=== PATIENT | female | born 1955 | race Caucasian/White ===

== ENCOUNTER 2018-05-11 15:02 | Observation (INO) | payer OTHER ==
[2018-05-11 15:14] VITALS: BMI 38.7
--- NOTE | 2018-05-11 15:17 | PDOC ---
History of Present Illness - General Chief Complaint: Chest Pain Stated Complaint: CHEST PAIN Time Seen by Provider: 05/11/18 15:17 - History of Present Illness Initial Comments: 05/11/18 16:16 The patient is a 63 year old female with a history of HTN, HLD, DM, COPD, Thyroid disfunction who presents for evaluation of chest pain. The patient reports that she was in wound clinic for lower extremity wounds and upon leaving the office, she began to have chest pressure with left arm tingling and shortness of breath. The patient notes that her symptoms have resolved on presentation to the ED. She otherwise denies fevers, chills, nausea, vomiting, abdominal pain, or changes with urination or bowel movements. Past History - Past Medical History Allergies/Adverse Reactions: Allergies Allergy/AdvReac Type Severity Reaction Status Date / Time Iodinated Contrast- Oral and Allergy Severe Verified 04/20/18 16:08 IV Dye iodine Allergy Severe Verified 04/20/18 16:08 Iodine and Iodide Containing Allergy Severe Verified 04/20/18 16:08 Produc shrimp Allergy Verified 04/20/18 16:08 vancomycin Allergy Verified 04/20/18 16:08 Home Medications: Ambulatory Orders Apixaban [Eliquis] 1 tab PO BID 04/20/18 Cholecalciferol (Vitamin D3) [Vitamin D3] 1 tab PO DAILY 04/20/18 Digoxin 125 mcg PO DAILY 04/20/18 Doxycycline Hyclate [Vibramycin -] 500 mg PO DAILY 04/20/18 Duloxetine HCl [Cymbalta] 1 tab PO BID 04/20/18 Ezetimibe [Zetia -] 1 tab PO HS 04/20/18 Furosemide [Lasix] 1 tab PO DAILY 04/20/18 Levothyroxine [Synthroid -] 1 tab PO DAILY 04/20/18 Melatonin 1 tab PO HS 04/20/18 Metoprolol Tartrate 12.5 mg PO BID 04/20/18 Oxymorphone HCl [Opana] 1 tab PO QID 04/20/18 Potassium Chloride [Klor-Con M20] 1 tab PO DAILY 04/20/18 Pregabalin [Lyrica -] 1 cap PO QID 04/20/18 Tiotropium Br/Olodaterol HCl [Stiolto Respimat Inhal [place]] 2 puff IH DAILY 02/27 Vitamin A 1 tab PO DAILY 04/20/18 clonazePAM [Klonopin -] 1 tab PO TID 04/20/18 Collagenase Clostridium Hist. [Santyl] 1 applic TP DAILY #90 oint...g. 05/11/18 COPD: Yes (O2 AT NIGHT) Diabetes: Yes HTN: Yes Thyroid Disease: Yes - Surgical History Orthopedic Surgery: Yes (left thigh fx with surgery) - Immunization History Immunization Up to Date: Yes - Suicide/Smoking/Psychosocial Hx Smoking History: Never smoked Have you smoked in the past 12 months: Yes Number of Cigarettes Smoked Daily: 40 Information on smoking cessation initiated: No Hx Alcohol Use: No Drug/Substance Use Hx: No Substance Use Type: None Review of Systems - Review of Systems Comments:: 05/11/18 16:18 Constitutional: No fevers, chills, fatigue, malaise HEENT: No Rhinorrhea, nasal congestion, visual changes Cardiovascular: Chest pressure. No syncope, palpitations, lightheadedness Respiratory: SOB. No Cough, Hemoptysis, Gastrointestinal: No Abdominal pain, Nausea, Vomiting, Constipation, Diarrhea, Melena Genitourinary: No Dysuria, Frequency, Urgency, Hesitancy, Hematuria, Flank pain Musculoskeletal: No Myalgia, arthralgia Skin: No rashes, itching, bruising, pallor Neurologic: Tingling. No Headache, Dizziness, Numbness, Weakness, Psychiatric: No Hallucinations. No SI or HI *Physical Exam - Vital Signs Last Vital Signs Temp Pulse Resp BP Pulse Ox 98.2 F 104 H 22 H 107/71 93 L 05/11/18 15:11 05/11/18 15:11 05/11/18 15:11 05/11/18 15:11 05/11/18 15:11 - Physical Exam Comments: 05/11/18 16:18 General Appearance: Nourished. No Apparent Distress HEENT: No Pharyngeal Erythema, Tonsillar Exudate, Tonsillar Erythema Neck: No Cervical Lymphadenopathy Respiratory/Chest: Wheezing noted on exam. No Crackles, Rales, Rhonchi, Cardiovascular: Regular Rhythm, Regular Rate. No Murmur, Gallops, Rubs Gastrointestinal/Abdominal: Normal Bowel Sounds, Soft. No Guarding, Rebound, Tenderness Musculoskeletal: No CVA Tenderness Extremity: Normal Capillary Refill Integumentary: Normal Color, Dry, Warm Neurologic: Fully Oriented, Alert, Normal Mood/Affect, Normal Response, Moderate Sedation - Procedure Monitoring Vital Signs: Procedure Monitoring Vital Signs Temperature 98.2 F 05/11/18 15:11 Pulse Rate 104 H 05/11/18 15:11 Respiratory Rate 22 H 05/11/18 15:11 Blood Pressure 107/71 05/11/18 15:11 O2 Sat by Pulse Oximetry (%) 93 L 05/11/18 15:11 Heart Score/ECG Review - History History: Moderately suspicious - Electrocardiogram EKG: Non specific repolarization disturbance - Age Age: >/= 65 - Risk Factors Risk Factors Heart Score: Yes Hx Hypercholesterolemia, Yes Hx Hypertension, Yes Hx Diabetes, Yes Smoking History Based on the list above the patient has:: >/=3 risk factors or Hx atherosclerotic disease - Troponin Troponin: </= normal limit - Score Heart Score - Total: 6 #1 ECG reviewed & interpreted by me at: 16:22 General ECG Interpretation: Sinus Rhythm, Normal Rate 05/11/18 16:31 Incomplete right bundle branch block New t wave inversions in leads V4-V6 ED Treatment Course - LABORATORY CBC & Chemistry Diagram: 05/12/18 10:00 05/12/18 10:00 Medical Decision Making - Medical Decision Making 05/11/18 16:19 The patient is a 63 year old female with a history of HTN, HLD, DM, COPD, Thyroid disfunction who presents for evaluation of chest pain. Differential includes but is not limited to: ACS, Arrhythmia, COPD, Infections, Metabolic Derangement. Given the patient's history and physical exam, we will obtain a cbc, cmp, troponin, bnp, chest plain film, ekg to evaluate further. We will treat with aspirin and continue to monitor and reassess while here in the ED. 05/11/18 17:18 CBC, cmp, troponin, are unremarkable. BNP was elevated to 6000s. Chest plain film is unremarkable. The patient's symptoms are likely due to a COPD exacerbation. The patient was signed out to the night team pending a CTA to r/ o PE. 05/13/18 10:19 *DC/Admit/Observation/Transfer Diagnosis at time of Disposition: COPD exacerbation COPD (chronic obstructive pulmonary disease) Qualifiers: COPD type: unspecified COPD Qualified Code(s): J44.9 - Chronic obstructive pulmonary disease, unspecified - Discharge Dispostion Condition at time of disposition: Improved - Referrals - Patient Instructions - Post Discharge Activity
[2018-05-11] MEDS ORDERED: ASPIRIN 81 MG CHEWABLE TABLETS PO ONE (15:46)
[2018-05-11] MEDS ORDERED: ASPIRIN 81 MG CHEWABLE TABLETS ONE (16:04)
[2018-05-11 16:23] LABS: ALBUMIN 2.8 g/dl (3.4-5.0); ALK PHOS 138 U/L (45-117); ANION GAP 6 MMOL/L (8-16); BILIRUBIN,TOTAL 0.8 mg/dL (0.2-1); BLOOD UREA NITROGEN 16 mg/dL (7-18); CALCIUM 8.6 mg/dL (8.5-10.1); CHLORIDE 104 mmol/L (98-107); CO2 28 mmol/L (21-32); CREATININE 0.9 mg/dL (0.55-1.3); GLUCOSE,RANDOM 87 mg/dL (74-106); N-TERMINAL BNP 6779.4 pg/ml (5-125); POTASSIUM 5.2 mmol/L (3.5-5.1); SGOT/AST 23 U/L (15-37); SGPT/ALT 12 U/L (13-61); SODIUM 137 mmol/L (136-145); TOT PROT 7.4 g/dl (6.4-8.2)
[2018-05-11 16:30] LABS: BASO % 1.1 % (0-2.0); EOS % 1.2 % (0-4.5); HEMATOCRIT 40.3 % (32.4-45.2); HEMOGLOBIN 12.6 GM/dL (10.7-15.3); LYMPH % 12.9 % (8-40); MCH 23.5 pg (25.7-33.7); MCHC 31.3 g/dl (32.0-36.0); MEAN CELL VOLUME 75.1 fl (80-96); MEAN PLT VOLUME 9.6 fl (7.5-11.1); NEUT % 76.8 % (42.8-82.8); PLATELET COUNT 212 K/MM3 (134-434); RBC 5.37 M/mm3 (3.60-5.2); RDW 20.9 % (11.6-15.6); WHITE BLOOD COUNT 11.8 K/mm3 (4.0-10.0)
[2018-05-11] MEDS ORDERED: ALBUTEROL SO4 2.5/IPRATROPIUM 0.5 INH SOL 3 ML VIAL.NEB. NEB ONE ×3 (17:05→17:15)
--- NOTE | 2018-05-11 17:06 | PDOC ---
Attending Attestation - Resident Resident Name: Jamil Knight - ED Attending Attestation I have performed the following: I have examined & evaluated the patient, The case was reviewed & discussed with the resident, I agree w/resident's findings & plan, Exceptions are as noted - HPI HPI: 05/11/18 17:03 63 yo F with h/o chonic venous stasis ulcers on wound vac, copd, pulm htn, htn hld here from wound clinic ( dr. scott) where she was having her right leg evaluation, suddenly had pressure like chest pain radiating to her left arm and tingling. has since resolved. lasted few minutes. no cough. no h/o pe or dvt. did have associated sob. pt does note where home oxygen, only at night. see bobbin trucker dr Hurst [phone] - Physicial Exam PE: 05/11/18 17:05 awake alert lungs with decreased air flow bilaterally . exp wheezing faint, normal effort. heart irreg tachycardia. ext wwp. diffuse bilat pitting edema. mild erythema to right leg. wound vac in place. nuero alert oriented x 3. - Medical Decision Making 05/11/18 17:06 differential angina, secondary to lung process such as hypoxia from pna effusion or copd. pe considered as pt with decreased mobility from leg wounds. plan labs cxr likley ct a aspirin. will admit to tele. in addition will treat copd with nebs. steroids. Heart Score/ECG Review #1 General ECG Interpretation: Sinus Rhythm, Normal Rate, Normal Intervals Compared to previous ECG there are: Other (st depressions II, II AVF, V5 - V6. change from old ekg 2002.)
--- NOTE | 2018-05-11 20:03 | PDOC ---
*Physical Exam - Vital Signs Last Vital Signs Temp Pulse Resp BP Pulse Ox 98.2 F 104 H 22 H 107/71 3 L 05/11/18 15:11 05/11/18 15:11 05/11/18 15:11 05/11/18 15:11 05/11/18 16:45 ED Treatment Course - LABORATORY CBC & Chemistry Diagram: 05/12/18 10:00 05/12/18 10:00 - ADDITIONAL ORDERS Additional order review: Laboratory Results 05/11/18 15:40 Sodium 137 Potassium 5.2 H Chloride 104 Carbon Dioxide 28 Anion Gap 6 L BUN 16 Creatinine 0.9 Creat Clearance w eGFR > 60 Random Glucose 87 Calcium 8.6 Total Bilirubin 0.8 AST 23 ALT 12 L Alkaline Phosphatase 138 H Creatine Kinase 81 Troponin I < 0.02 B-Natriuretic Peptide 6779.4 H Total Protein 7.4 Albumin 2.8 L 05/11/18 15:40 RBC 5.37 H MCV 75.1 L MCHC 31.3 L RDW 20.9 H MPV 9.6 Neutrophils % 76.8 Lymphocytes % 12.9 Monocytes % 8.0 Eosinophils % 1.2 Basophils % 1.1 - Medications Given in the ED: ED Medications Discontinued Medications Generic Name Dose Route Start Last Admin Trade Name Freq PRN Reason Stop Dose Admin Albuterol/Ipratropium 2 amp 05/11/18 17:05 05/11/18 17:15 Duoneb - NEB 05/11/18 17:06 2 amp ONCE ONE Administration Aspirin 324 mg 05/11/18 15:46 05/11/18 16:06 Asa - PO 05/11/18 15:47 324 mg ONCE ONE Administration Medical Decision Making - Medical Decision Making Pt was signed out to me by resident Dr. Knight, who explained the presentation , ED course, any pending results, and needed interventions. Pending results include CTA to r/o PE and admission. Pt is currently stable and is lying comfortably, but has been saturating 88-90% on 5 L NC. Pt apparently is supposed to use home O2 and has continued smoking multiple packs of cigarettes per day with no home O2 use during the day. 05/11/18 19:06 Pt has anaphylactic reaction to IV contrast. No immediate access to VQ scan at [facility]. Calling [facility] ER/Pulmonology to see if they will accept transfer for further evaluation/VQ scan to r/o PE. 05/11/18 20:18 Spoke with [facility]; they do not have access to VQ scan at night or on the weekends , so transfer would still put us at delay for VQ scan. Give pt on anti- coagulation for A-fib, unlikely PE at this time, and SOB likely due to COPD exacerbation. Pt sitting-up, continues to saturate around baseline (88-90%) on 5L NC. Hospitalist team paged for admission/further recommendations. 05/11/18 21:07 Spoke with hospitalist team who has accepted pt for admission. 05/11/18 23:01 Providing pt home dose of Cymbalta for anxiety. Hospitalist team paged to put in admission orders. 05/12/18 00:36 (entered later) Hospitalist team admitted pt for telemetry observation. Pt was provided Cymbalta and Klonopin for anxiety attack. When I left the department, pt was lying comfortably and was saturating at her baseline ~90% O2 on 5 L NC. 05/12/18 18:08 *DC/Admit/Observation/Transfer Diagnosis at time of Disposition: COPD exacerbation COPD (chronic obstructive pulmonary disease) Qualifiers: COPD type: unspecified COPD Qualified Code(s): J44.9 - Chronic obstructive pulmonary disease, unspecified - Discharge Dispostion Condition at time of disposition: Improved Decision to Admit order: Yes - Referrals - Patient Instructions - Post Discharge Activity
[2018-05-12] MEDS ORDERED: DULoxetine HCL 60 MG CAPSULE.DR PO ONE (00:01)
[2018-05-12] MEDS ORDERED: clonazePAM 0.5 MG TABLET PO ONE (01:07)
[2018-05-12] MEDS ORDERED: DULoxetine HCL 30 MG CAPSULE.DR (FP) PO ONE (01:07)
[2018-05-12] MEDS ORDERED: clonazePAM 0.5 MG TABLET PO PRN (01:23)
--- NOTE | 2018-05-12 01:30 | HP ---
CHIEF COMPLAINT: Chest pain and SOB PCP: HISTORY OF PRESENT ILLNESS: Pt is a 63 y/o lady 2PPD smoker on 3L home O2 every night with a significant past medical history of HTN, HLD, DM (most recent A1C 5.5%), COPD, Atrial Flutter on Eliquis, 6 herniated discs, congenital renal malformation was in wound care on and suddenly became short of breath and decompensated. Pt endorses she was sitting in her chair when she ascencio to feel sob and experience chest pain. Pain is described as being located in the middle of her chest. This is the first time she has had this before. Furthermore, endorses a tingling sensation inside her arms during the episode. Pain is described as achy in nature. Was hospitalized on Apr 16 of this year for SVT? Ultimately was placed on Metoprolol an outpatient. ER course was notable for: (1) Desat low 70's- 80'S (2) 6779 bnp (3) Recent Travel: PAST MEDICAL HISTORY: per hpi PAST SURGICAL HISTORY: B/L breast reduction, Skin graft left leg, gastric bypass , Social History: Smokin packs a day cigarettes Alcohol: denies Drugs: denies Family History: Allergies Iodinated Contrast- Oral and IV Dye Allergy (Severe, Verified 04/20/18 16:08) iodine Allergy (Severe, Verified 04/20/18 16:08) Iodine and Iodide Containing Produc Allergy (Severe, Verified 04/20/18 16:08) shrimp Allergy (Verified 04/20/18 16:08) vancomycin Allergy (Verified 04/20/18 16:08) HOME MEDICATIONS: Home Medications Medication Instructions Recorded Apixaban [Eliquis] 1 tab PO BID 04/20/18 Cholecalciferol (Vitamin D3) 1 tab PO DAILY 04/20/18 [Vitamin D3] Digoxin 125 mcg PO DAILY 04/20/18 Doxycycline Hyclate [Vibramycin -] 500 mg PO DAILY 04/20/18 Duloxetine HCl [Cymbalta] 1 tab PO BID 04/20/18 Ezetimibe [Zetia -] 1 tab PO HS 04/20/18 Furosemide [Lasix] 1 tab PO DAILY 04/20/18 Levothyroxine [Synthroid -] 1 tab PO DAILY 04/20/18 Melatonin 1 tab PO HS 04/20/18 Metoprolol Tartrate 12.5 mg PO BID 04/20/18 Oxymorphone HCl [Opana] 1 tab PO QID 04/20/18 Potassium Chloride [Klor-Con M20] 1 tab PO DAILY 04/20/18 Pregabalin [Lyrica -] 1 cap PO QID 04/20/18 Tiotropium Br/Olodaterol HCl 2 puff IH DAILY 04/20/18 [Stiolto Respimat Inhal [place]] Vitamin A 1 tab PO DAILY 04/20/18 clonazePAM [Klonopin -] 1 tab PO TID 04/20/18 Collagenase Clostridium Hist. 1 applic TP DAILY #90 oint...g. 05/11/18 [Santyl] REVIEW OF SYSTEMS CONSTITUTIONAL: Absent: fever, chills, diaphoresis, generalized weakness, malaise, loss of appetite, weight change HEENT: Absent: rhinorrhea, nasal congestion, throat pain, throat swelling, difficulty swallowing, mouth swelling, ear pain, eye pain, visual changes CARDIOVASCULAR: PRESENT: chest pain RESPIRATORY: PRESENT: shortness of breath, wheezing GASTROINTESTINAL: Absent: abdominal pain, abdominal distension, nausea, vomiting, diarrhea, constipation, melena, hematochezia GENITOURINARY: Absent: dysuria, frequency, urgency, hesitancy, hematuria, flank pain, genital pain MUSCULOSKELETAL: Absent: myalgia, arthralgia, joint swelling, back pain, neck pain SKIN: Absent: rash, itching, pallor HEMATOLOGIC/IMMUNOLOGIC: Absent: easy bleeding, easy bruising, lymphadenopathy, frequent infections ENDOCRINE: Absent: unexplained weight gain, unexplained weight loss, heat intolerance, cold intolerance NEUROLOGIC: Absent: headache, focal weakness or paresthesias, dizziness, unsteady gait, seizure, mental status changes, bladder or bowel incontinence PSYCHIATRIC: PRESENT: anxiety PHYSICAL EXAMINATION Vital Signs - 24 hr 05/11/18 05/11/18 15:11 16:45 Temperature 98.2 F Pulse Rate 104 H Respiratory 22 H Rate Blood Pressure 107/71 O2 Sat by Pulse 93 L 3 L Oximetry (%) GENERAL: Awake, alert, Oriented HEAD: Normal with no signs of trauma. EYES: EOMI EARS, NOSE, THROAT: MMM NECK: No jvd appreciated LUNGS: Decresed BS throughout HEART: RRR ABDOMEN: SOFt NDNT BS+ MUSCULOSKELETAL: Normal range of motion at all joints. No bony deformities or tenderness. No CVA tenderness. UPPER EXTREMITIES: 2+ pulses, warm, well-perfused. No cyanosis. No clubbing. No peripheral edema. LOWER EXTREMITIES: RLE wond vac in place. stasis dermatitis b/l .Onychomycosis NEUROLOGICAL: Cranial nerves II-XII intact. Normal speech. Normal gait. PSYCHIATRIC: Cooperative. Good eye contact. Appropriate mood and affect. SKIN: no rashes or lesions appreciated Laboratory Results - last 24 hr 05/11/18 05/11/18 15:40 15:40 WBC 11.8 H RBC 5.37 H Hgb 12.6 Hct 40.3 MCV 75.1 L MCH 23.5 L MCHC 31.3 L RDW 20.9 H Plt Count 212 MPV 9.6 Absolute Neuts (auto) 9.1 H Neutrophils % 76.8 Lymphocytes % 12.9 Monocytes % 8.0 Eosinophils % 1.2 Basophils % 1.1 Nucleated RBC % 0 Sodium 137 Potassium 5.2 H Chloride 104 Carbon Dioxide 28 Anion Gap 6 L BUN 16 Creatinine 0.9 Creat Clearance w eGFR > 60 Random Glucose 87 Calcium 8.6 Total Bilirubin 0.8 AST 23 ALT 12 L Alkaline Phosphatase 138 H Creatine Kinase 81 Troponin I < 0.02 B-Natriuretic Peptide 6779.4 H Total Protein 7.4 Albumin 2.8 L ASSESSMENT/PLAN: Pt is a 63 y/o lady with a significant past medical history of HTN, HLD, DM ( most recent A1C 5.5%), COPD, Atrial Flutter on Eliquis, 6 herniated discs, congenital renal malformation was in wound care on and suddenly became short of breath and decompensated. #Chest pain with SOB -Want to r/o P.E in setting of abrupt tachycardia, chest pain, and shortness of breath - Cannot receive CT Contrast in light of allergy - V/Q scan not performed on weekends - Pt already on Eliquis 5 bid. -Tele -trend troponin -check an echo -Well's Score 0 #HTN -Resume Home meds # HLD Resume home meds Atrial Flutter Resume Metoprolol and Eliquis COPD exacerbation? Prednisone 60 daily x 5 days # Congenital renal malformation -Follow renal levels. FEN No Fluids Mon Electrolytes Sodium controled diet DVT ppx: Eliquis 5 bid diso: Tele obs Visit type - Emergency Visit Emergency Visit: Yes ED Registration Date: 05/11/18 Care time: The patient presented to the Emergency Department on the above date and was hospitalized for further evaluation of their emergent condition. - New Patient This patient is new to me today: Yes Date on this admission: 05/12/18 - Critical Care Critical Care patient: No
--- NOTE | 2018-05-12 01:42 | PN ---
Teaching Attending Note Name of Resident: Sarkis Garrett ATTENDING PHYSICIAN STATEMENT I saw and evaluated the patient. I reviewed the resident's note and discussed the case with the resident. I agree with the resident's findings and plan as documented. SUBJECTIVE: Seen and examined; she was having a panic attack when I assessed her so couldn' t provide a complete history; please see other documentation for further details. She is a 63 y/o 2PPD smoker on 3L home O2 every night and sometimes during the day (has been requiring it but not using it despite her home care nurse telling her that she should). She also has a complicated history of DM, osteoporosis, LE wounds on wound vac being followed by Dr. Lainez, atrial fib on eliquis, congenital renal malformation. She had a rapid response today at wound care. She is hemodynamially stable and afebrile. She is compliant with her home medications. Was in wound care today when she experienced sudden onset SOB with chest pain radiating to her throat. Never had this before. [facility]es [facility] with recent admission in [place] earlier in this month (this is the hospital she tends to go to). She is found to have a BNP of 6779 and a WBC count of 11.8. Has had sleep study done but doesn't use CPAP. She is saturating well now on baseline O2. She does have some wheezes but as stated smokes 40 cigarettes per day. She denies having a panic attack when she had the CP and tells me that she is chest pain free when I saw her in the ER. There was aparently concern for PE and attempt was made to transfer to [facility]. Patient has a Well's score of 0 (must take into account she didn't take her PM meds for her aflutter which she was recently admitted with and her panic which easily brought her HR only slightly over 100 and only initially). 10 sys ROS done and negative aside from HPI PMH and PSH reviewed FH asked and noncontributory Social history positive for nearly lifetime smoker; 2PPD. Severe anxiety. is HCP and provides support. Medications reviewed OBJECTIVE: VS labs and imaging reviewed NAD, AAO, resting in bed. Tearful and anxious. Preoccupied with this. Legs with [place] attached and rubar of the R>L which both are swollen with dependent edema. Palpable pulses Good air movement but wheezes scattered bilaterally; on baseline O2. RRR s1/2 no mgr Abdomen is obese, NT, ND, +BS CN2-12 wnl, no fnd Tearful mood with very anxious affect and thought content involving her anxiety limiting insight to current situation Labs show BNP 6779, troponin negative, hypoalbuminemia to 2.8. Alk phos 138, WBC only mildly elevated at 11.8 CXR with cardiomegaly; no moshe pneumonia EKG reviewed ASSESSMENT AND PLAN: Mrs Betancourt is a 63 y/o CF who had a rapid response in wound clinic today brought to the ER for chest pain associated with SOB. 1) Chest pain with SOB -She is on her baseline O2 saturation now but has been sporadically using O2 on and off at home due to her wound vac causing difficulties with this; she will use O2 some days during the day, every day at night and her home health aide is encouraging her to use the O2 more frequently but she is refusing and continues to smoke. Once the anxiety was resolved she was resting comfortably on her nighttime requirements saturating above 92%. -She is on eliquis which argues against PE, argues against ACS. She does however have risks for CAD. We will trend troponin, check an echo. monitor on tele. Consider CV consult/further testing. She also is anxious but denies this plays a role. -BNP is elevated in the 6k range without any prior values. Followup on echo. She is on home lasix so assuming some amount of heart failure. Obtaining old records from her various facilities is paramount; will give a dose of IV lasix and monitor for response. Given her BMI of nearly 40 and complicating issues it is difficult to say for sure what her fluid status is. Strict Is and Os, QD weights, and sodium restricted diet. -In terms of the concern for PE, I do not see a reason to transfer the patient. We can check a d-dimer but given her wounds it would be positive no matter what, likely. Her wells score is low and anything that can be construed as positive is explainable by a known explanation. She is anaphylactic to dye. If concern persists for PE despite this would need a VQ -She does have reasons to have a COPD exacerbation; the trigger would likely be continued smoking with noncompliance with O2. Counseled regardign importance. Treating empirically for COPD exacerbation with 60 prednisone QD, ATC duonebs for at least a day with PRN albuterol, O2. Co -No evidence of PNA, slight WBC count likely reactive. -Can check a flu swab for completeness. Also would give incentive spirometry 2) Elevated BNP -Discussed above 3) H/O COPD with suspect exacerbation, current 40 cigarrete/day smoker, on home O2 -Discussed above 4) LE Wounds -Consult wound care for continued management when inpatient. 5) Hypoalbuminemia -Check prealbumin 6) Congenital Renal malformation -Tells us she has 3 kidneys; renal function normal; observe and OP followup 7) Morbid Obesity -S/P gastric sleeve; continue dietary modification and followup as needed 8) Tobacco abuse -[employer] to quit 9) Anxiety -Continue home medications
[2018-05-12] MEDS: METOPROLOL TARTRATE 25 MG TABLET (FP) PO SCH ×2 (01:51→09:17)
[2018-05-12] MEDS ORDERED: APIXABAN 5 MG TABLET PO ONE (02:43)
[2018-05-12] MEDS: APIXABAN 5 MG TABLET PO SCH ×2 (02:53→09:15)
[2018-05-12] MEDS ORDERED: ALBUTEROL SO4 0.083% IH SOL 2.5 MG/3 ML VIAL.NEB. NEB PRN (04:52)
[2018-05-12] MEDS ORDERED: FUROSEMIDE 40 MG/4 ML INJECTABLE VIAL IVPUSH ONE (04:53)
[2018-05-12] MEDS ORDERED: LEVOTHYROXINE NA 25 MCG TABLET (FP) ONE (06:50)
[2018-05-12] MEDS ORDERED: FUROSEMIDE 40 MG/4 ML INJECTABLE VIAL ONE (06:50)
[2018-05-12] MEDS ORDERED: LEVOTHYROXINE NA 50 MCG TABLET (FP) PO SCH (07:00)
[2018-05-12] MEDS: ALBUTEROL SO4 2.5/IPRATROPIUM 0.5 INH SOL 3 ML VIAL.NEB. NEB SCH ×2 (08:51→12:06)
[2018-05-12 09:09] VITALS: TEMP 97.2
[2018-05-12] MEDS ORDERED: PREGABALIN 50 MG CAPSULE ONE (09:26)
[2018-05-12] MEDS ORDERED: PREGABALIN 100 MG CAPSULE ONE (09:27)
[2018-05-12] MEDS ORDERED: VITAMIN A 10,000 UNITS CAPSULE PO SCH (10:00)
[2018-05-12] MEDS ORDERED: FUROSEMIDE 40 MG TABLET (FP) PO SCH (10:00)
[2018-05-12] MEDS ORDERED: DIGOXIN 0.125 MG TABLET (FP) PO SCH (10:00)
[2018-05-12] MEDS ORDERED: COLLAGENASE CLOSTRIDIUM HIST. 30 GRAMS TUBE TP SCH (10:00)
[2018-05-12] MEDS ORDERED: DULoxetine HCL 30 MG CAPSULE.DR (FP) PO SCH (10:00)
[2018-05-12] MEDS ORDERED: PATIENT'S OWN MEDICATION (NON-FORMULARY) (Tiotropium Br/Olodaterol Hcl [Stiolto Respimat I IH SCH (10:00)
[2018-05-12] MEDS ORDERED: PREGABALIN 75 MG CAPSULE PO SCH (10:00)
[2018-05-12] MEDS ORDERED: DOXYCYCLINE HYCLATE 100 MG CAPSULE PO SCH (10:00)
[2018-05-12] MEDS ORDERED: predniSONE 20 MG TABLET (UD) PO SCH (10:00)
[2018-05-12] MEDS ORDERED: CHOLECALCIFEROL (VITAMIN D3) 1,000 UNIT TABLET (FP) PO SCH (10:00)
[2018-05-12 10:27] LABS: BASO % 0.9 % (0-2.0); EOS % 1.9 % (0-4.5); HEMATOCRIT 43.6 % (32.4-45.2); HEMOGLOBIN 13.1 GM/dL (10.7-15.3); LYMPH % 20.9 % (8-40); MCH 22.8 pg (25.7-33.7); MCHC 30.2 g/dl (32.0-36.0); MEAN CELL VOLUME 75.5 fl (80-96); MEAN PLT VOLUME 9.1 fl (7.5-11.1); MONO % 8.5 % (3.8-10.2); NEUT % 67.8 % (42.8-82.8); PLATELET COUNT 195 K/MM3 (134-434); RBC 5.77 M/mm3 (3.60-5.2); RDW 21.2 % (11.6-15.6); WHITE BLOOD COUNT 9.9 K/mm3 (4.0-10.0)
[2018-05-12 10:40] LABS: ANION GAP 7 MMOL/L (8-16); BLOOD UREA NITROGEN 13 mg/dL (7-18); CALCIUM 8.9 mg/dL (8.5-10.1); CHLORIDE 106 mmol/L (98-107); CO2 26 mmol/L (21-32); CREATININE 0.9 mg/dL (0.55-1.3); GLUCOSE,RANDOM 93 mg/dL (74-106); INR 1.49 (0.83-1.09); MAGNESIUM 2.4 mg/dL (1.8-2.4); POTASSIUM 4.2 mmol/L (3.5-5.1); PROTHROMBIN TIME (PATIENT) 17.6 SEC (9.7-13.0); SODIUM 139 mmol/L (136-145)
[2018-05-12 10:43] LABS: ACTIVATED PTT 36.9 SECONDS (25.2-36.5)
[2018-05-12] MEDS ORDERED: ALBUTEROL SO4 2.5/IPRATROPIUM 0.5 INH SOL 3 ML VIAL.NEB. NEB ONE (12:05)
--- NOTE | 2018-05-12 14:16 | DS ---
Physical Exam: SUBJECTIVE: Patient seen and examined. asymptomatic. states she want to go home. had no difficulty sleeping last night or laying flat. states she had a "panic attack yesterday in the wound care center and has felt fine since. OBJECTIVE: Vital Signs Period Temp Pulse Resp BP Sys/[place] Pulse Ox Last 24 Hr 97.2 F-98.2 F 99-104 18-22 107-136/71-91 3-93 PHYSICAL EXAM GENERAL: The patient is awake, alert, and fully oriented, in no acute distress. HEAD: Normal with no signs of trauma. EYES: PERRL, extraocular movements intact, sclera anicteric, conjunctiva clear. ENT: Ears normal, nares patent, oropharynx clear without exudates, moist mucous membranes. NECK: Trachea midline, full range of motion, supple. LUNGS: Breath sounds equal, clear to auscultation bilaterally, no wheezes, no crackles, no accessory muscle use. HEART: Regular rate and rhythm, S1, S2 without murmur, rub or gallop. ABDOMEN: Soft, nontender, nondistended, normoactive bowel sounds, no guarding, no rebound, no hepatosplenomegaly, no masses. EXTREMITIES: 2+ pulses, warm, well-perfused, no edema. NEUROLOGICAL: Cranial nerves II through XII grossly intact. Normal speech, gait not observed. PSYCH: Normal mood, normal affect. SKIN: Warm, dry, normal turgor, no rashes or lesions noted. RLE wound vac in place, LABS Laboratory Results - last 24 hr 05/11/18 05/11/18 05/12/18 15:40 15:40 10:00 WBC 11.8 H RBC 5.37 H Hgb 12.6 Hct 40.3 MCV 75.1 L MCH 23.5 L MCHC 31.3 L RDW 20.9 H Plt Count 212 MPV 9.6 Absolute Neuts (auto) 9.1 H Neutrophils % 76.8 Lymphocytes % 12.9 Monocytes % 8.0 Eosinophils % 1.2 Basophils % 1.1 Nucleated RBC % 0 PT with INR INR PTT (Actin FS) D-Dimer 1596 H Sodium 137 Potassium 5.2 H Chloride 104 Carbon Dioxide 28 Anion Gap 6 L BUN 16 Creatinine 0.9 Creat Clearance w eGFR > 60 POC Glucometer Random Glucose 87 Calcium 8.6 Phosphorus Magnesium Total Bilirubin 0.8 AST 23 ALT 12 L Alkaline Phosphatase 138 H Creatine Kinase 81 Troponin I < 0.02 B-Natriuretic Peptide 6779.4 H Total Protein 7.4 Albumin 2.8 L 05/12/18 05/12/18 05/12/18 10:00 10:00 10:00 WBC 9.9 RBC 5.77 H Hgb 13.1 Hct 43.6 MCV 75.5 L MCH 22.8 L MCHC 30.2 L RDW 21.2 H Plt Count 195 MPV 9.1 Absolute Neuts (auto) 6.7 Neutrophils % 67.8 Lymphocytes % 20.9 D Monocytes % 8.5 Eosinophils % 1.9 Basophils % 0.9 Nucleated RBC % 0 PT with INR 17.60 H INR 1.49 H PTT (Actin FS) 36.9 H D-Dimer Sodium 139 Potassium 4.2 Chloride 106 Carbon Dioxide 26 Anion Gap 7 L BUN 13 Creatinine 0.9 Creat Clearance w eGFR > 60 POC Glucometer Random Glucose 93 Calcium 8.9 Phosphorus 3.0 Magnesium 2.4 Total Bilirubin AST ALT Alkaline Phosphatase Creatine Kinase Troponin I B-Natriuretic Peptide Total Protein Albumin 05/12/18 11:54 WBC RBC Hgb Hct MCV MCH MCHC RDW Plt Count MPV Absolute Neuts (auto) Neutrophils % Lymphocytes % Monocytes % Eosinophils % Basophils % Nucleated RBC % PT with INR INR PTT (Actin FS) D-Dimer Sodium Potassium Chloride Carbon Dioxide Anion Gap BUN Creatinine Creat Clearance w eGFR POC Glucometer 133.79601 Random Glucose Calcium Phosphorus Magnesium Total Bilirubin AST ALT Alkaline Phosphatase Creatine Kinase Troponin I B-Natriuretic Peptide Total Protein Albumin HOSPITAL COURSE: Date of Admission:05/11/18 Date of Discharge: 05/12/18 admitting diagnosis: CP, panic attack Pre hospital course 63 y/o lady 2PPD smoker on 3L home O2 every night with a significant past medical history of HTN, HLD, DM (most recent A1C 5.5%), COPD, Atrial Flutter on , 6 herniated discs, congenital renal malformation was in wound care on and suddenly became short of breath and decompensated. Pt endorses she was sitting in her chair when she ascencio to feel sob and experience chest pain. Pain is described as being located in the middle of her chest. This is the first time she has had this before. Furthermore, endorses a tingling sensation inside her arms during the episode. Pain is described as achy in nature. Was hospitalized on Apr 16 of this year for SVT? Ultimately was placed on Metoprolol an outpatient. Subsequent course observed overnight. clinically stable and saturating 89% on 2L [place] which is her home dose. states she typically hangs mid 80%'s on her home O2. states she had a panic attack yesterday with assoc CP but has felt fine since. was given a dose of prednisone however no wheezing noted on my exam or during the [employer] yesterday. requesting to go home. clinically pt does not appear volume overloaded. has appt to see doctor on monday. will d/c home. instructed to come back to hospital if symptoms return. will d/c steroids Minutes to complete discharge: 40 Discharge Summary Reason For Visit: TYPE 2 DIABETES MELLITUS WITH FOOT ULCER Current Active Problems Dyspnea (Acute) Afib (Chronic) COPD (chronic obstructive pulmonary disease) (Chronic) Diabetes (Chronic) Condition: Improved - Instructions Diet, Activity, Other Instructions: You were observed in the hospital overnight due to your difficulty breathing. All workup was normal. Resume your home medications COntinues to use supplemental oxygen as you need it to breathe adequately Follow up with your primary care doctor next week Return to the ER if your symptoms worsen. Disposition: HOME - Home Medications Comprehensive Discharge Medication List: Ambulatory Orders Apixaban [Eliquis] 1 tab PO BID 04/20/18 Cholecalciferol (Vitamin D3) [Vitamin D3] 1 tab PO DAILY 04/20/18 Digoxin 125 mcg PO DAILY 04/20/18 Doxycycline Hyclate [Vibramycin -] 500 mg PO DAILY 04/20/18 Duloxetine HCl [Cymbalta] 1 tab PO BID 04/20/18 Ezetimibe [Zetia -] 1 tab PO HS 04/20/18 Furosemide [Lasix] 1 tab PO DAILY 04/20/18 Levothyroxine [Synthroid -] 1 tab PO DAILY 04/20/18 Melatonin 1 tab PO HS 04/20/18 Metoprolol Tartrate 12.5 mg PO BID 04/20/18 Oxymorphone HCl [Opana] 1 tab PO QID 04/20/18 Potassium Chloride [Klor-Con M20] 1 tab PO DAILY 04/20/18 Pregabalin [Lyrica -] 1 cap PO QID 04/20/18 Tiotropium Br/Olodaterol HCl [Stiolto Respimat Inhal [place]] 2 puff IH DAILY 02/27 Vitamin A 1 tab PO DAILY 04/20/18 clonazePAM [Klonopin -] 1 tab PO TID 04/20/18 Collagenase Clostridium Hist. [Santyl] 1 applic TP DAILY #90 oint...g. 05/11/18 This patient is new to me today: Yes Date on this admission: 05/12/18 Emergency Visit: Yes ED Registration Date: 05/11/18 Care time: The patient presented to the Emergency Department on the above date and was hospitalized for further evaluation of their emergent condition. Critical Care patient: No - Discharge Referral Referred to [facility] No
[2018-05-12 15:46] VITALS: BP 131/74; PULSE 95
--- NOTE | 2018-05-12 17:17 | EKG ---
Test Reason : Blood Pressure : / mmHG Vent. Rate : 099 BPM Atrial Rate : 099 BPM P-R Int : 234 ms QRS Dur : 104 ms QT Int : 300 ms P-R-T Axes : 076 088 232 degrees QTc Int : 385 ms SINUS RHYTHM WITH 1ST DEGREE A-V BLOCK POSSIBLE LEFT ATRIAL ENLARGEMENT INCOMPLETE RIGHT BUNDLE BRANCH BLOCK T WAVE ABNORMALITY, CONSIDER INFERIOR ISCHEMIA ABNORMAL ECG WHEN COMPARED WITH ECG OF 30-JUN-2006 14:44, DE INTERVAL HAS INCREASED INCOMPLETE RIGHT BUNDLE BRANCH BLOCK IS NOW PRESENT Confirmed by MD MODESTA, GINO ([id number]) on 05/12/2018 5:17:34 PM Referred By: Confirmed By:GINO BYERS MD
[2018-05-12] MEDS ORDERED: MELATONIN 1 MG TABLET PO SCH (22:00)
[2018-05-12] MEDS ORDERED: EZETIMIBE 10 MG TABLET (FP) PO SCH (22:00)
== END 2018-05-12 15:45 | disposition home or self-care (01) ==
LOC: JER 15:02 → JERBED 21:10
PROVIDERS: ADMIT Internal Medicine; ATTEND Internal Medicine
PROC: 3E0F7GC Introduction of Other Therapeutic Substance into Respiratory Tract, Via Natural or Artificial Opening (ICD-10-PCS; principal; 2018-05-11)
PROC: 3E0F7GC Introduction of Other Therapeutic Substance into Respiratory Tract, Via Natural or Artificial Opening (ICD-10-PCS; 2018-05-11)
PROC: 3E033GC Introduction of Other Therapeutic Substance into Peripheral Vein, Percutaneous Approach (ICD-10-PCS; 2018-05-11)
DX: J44.1 Chronic obstructive pulmonary disease with (acute) exacerbation (principal); I10 Essential (primary) hypertension; E11.621 Type 2 diabetes mellitus with foot ulcer; E78.5 Hyperlipidemia, unspecified; I48.2 Chronic atrial fibrillation; Z79.01 Long term (current) use of anticoagulants; R06.09 Other forms of dyspnea; Z99.81 Dependence on supplemental oxygen; F17.210 Nicotine dependence, cigarettes, uncomplicated; E07.9 Disorder of thyroid, unspecified; Q63.9 Congenital malformation of kidney, unspecified; Z94.5 Skin transplant status; Z98.84 Bariatric surgery status; Z98.890 Other specified postprocedural states; Z91.013 Allergy to seafood; Z88.1 Allergy status to other antibiotic agents; Z91.041 Radiographic dye allergy status
CPT/HCPCS: 11042; 11045; 15275; 36415; 71045-TC-FY; 80048; 80053; 82550; 82962; 83735; 83880; 84100; 84484; 85025; 85379; 85610; 85730; 93005; 93010; 99285-25; G0378; Q4160